=== PATIENT | female | born 1965 | race Caucasian/White ===

== ENCOUNTER → 2024-12-09 13:14 | Outpatient (REF) | payer BC, SELFPAY | LOC: HWWDC 13:14 | PROVIDERS: ATTENDING PHYSICIAN Obstetrics & Gynecology Gynecology; FAMILY PHYSICIAN Internal Medicine | DX: Z12.31 Encounter for screening mammogram for malignant neoplasm of breast (principal) | CPT/HCPCS: 77063; 77067 ==

== ENCOUNTER → 2024-12-28 09:40 | Outpatient (REF) | payer BC, SELFPAY | LOC: HWRAD 09:40 | PROVIDERS: ATTENDING PHYSICIAN Internal Medicine | DX: R20.0 Anesthesia of skin (principal) | CPT/HCPCS: 73130 ==

== ENCOUNTER → 2024-12-29 07:50 | Outpatient (REF) | payer BC, SELFPAY | LOC: EMG 07:50 | PROVIDERS: ATTENDING PHYSICIAN Internal Medicine | DX: R20.0 Anesthesia of skin (principal) | CPT/HCPCS: 95886; 95909 ==